=== PATIENT | male | born 1950 | race African-American/Black ===

== ENCOUNTER 2022-07-26 12:21 | Observation (INO) ==
[2022-07-26 16:49] LABS: Basophils % 0.4 % (0.0-0.8); Eosinophils # 0.3 10*3/uL (0.0-0.87); Hematocrit 38.6 VOL% (42.0-52.0); Hemoglobin 12.8 GM/DL (14.0-18.0); Immature Granulocytes % 0.3 %; Immature Granulocytes Absolute 0.02 #; Lymphocytes % 27.5 % (21.2-54.2); Mean Corpuscular HGB Conc 33.2 GM/DL (32-36); Mean Corpuscular Volume 88.9 FL (87-102); Mean Platelet Volume 10.6 FL (9.6-12.0); Monocytes # 0.5 10*3/uL (0.11-0.8); Monocytes % 6.1 % (1.7-12.7); Neutrophils % 61.7 % (38.7-73.9); Platelet Count 222 T/CUMM (130-400); Red Blood Count 4.34 MC/CUMM (3.8-5.5); Red Cell Distribution Width 13.2 % (9.3-17.3); White Blood Count 7.4 T/CUMM (4-12)
[2022-07-26 16:59] LABS: INR 0.9; PT Patient Result 10.3 SECS (10.1-12.1); Partial Thromboplastin Time 24.5 SECS (23.7-32.9)
[2022-07-26 17:08] LABS: Alanine Aminotransferase 16 U/L (16-61); Albumin 3.3 G/DL (3.4-5.0); Alkaline Phosphatase 81 U/L (45-117); Aspartate Amino Transferase 12 U/L (0-37); Bilirubin,Total < 0.39 MG/DL (0.20-1.00); Blood Urea Nitrogen 15 MG/DL (7-18); Calcium 9.2 MG/DL (8.5-10.1); Carbon Dioxide 28 MMOL/L (21-32); Chloride 110 MMOL/L (98-107); Glucose 148 MG/DL (74-106); Potassium 4.3 MMOL/L (3.5-5.1); Sodium 143 MMOL/L (136-145); Total Protein 6.3 G/DL (6.4-8.2)
[2022-07-26] MEDS ORDERED: SODIUM CHLORIDE 0.9% 1,000 ML IV STA (17:56)
[2022-07-26 18:12] LABS: Glucose,Urine (UA) 500 mg/dL (Negative); Ketones,Urine Negative (Negative); Protein,Urine >=300 mg/dL (Negative); Urine Appearance Clear (Clear); Urine Color Yellow (Yellow); Urine Specific Gravity 1.025 (1.001-1.035); Urine pH 5.5 (4.5-8.0)
[2022-07-26 18:13] LABS: Bilirubin,Urine Negative (Negative); Blood, Urine Trace mg/dL (Negative); Nitrite,Urine Negative (Negative); Urine Urobilinogen 0.2 eU/dL (<2.0)
[2022-07-26 18:16] LABS: Hyaline Casts,Urine 3 /LPF (0-3); Mucus,Urine Occasional /LPF (Occasional); RBC,Urine 6 /HPF (0-4); Squamous Epithelial Cell,Urine Occasional /HPF (0-10)
[2022-07-26 18:23] LABS: Barbiturates Screen,Urine Negative (Negative); Benzodiazepines Screen,Urine Negative (Negative); Cannabinoid Screen,Urine Negative (Negative); Opiate Screen,Urine Negative (Negative); Phencyclidine Screen,Urine Negative (Negative)
[2022-07-26] MEDS ORDERED: ACETAMINOPHEN 325 MG TABLET PO PRN (20:05)
[2022-07-26] MEDS ORDERED: ONDANSETRON 4 MG/2 ML VIAL IV PRN (20:05)
[2022-07-26] MEDS ORDERED: DOCUSATE SODIUM 100 MG CAPSULE PO PRN (20:05)
[2022-07-26] MEDS ORDERED: traZODone 50 MG TABLET PO PRN (20:05)
[2022-07-26] MEDS ORDERED: GLUCAGON 1 MG VIAL IM PRN (20:05)
[2022-07-26] MEDS ORDERED: DEXTROSE 10% 250 ML BAG IV PRN (20:05)
[2022-07-26] MEDS: ENOXAPARIN 40 MG/0.4 ML SYRINGE SUBCUT SCH (22:41)
[2022-07-26] MEDS: INSULIN REGULAR 100 UNIT/ML SUBCUT SCH (22:47)
[2022-07-27] MEDS: buPROPion SR 100 MG TABLET PO SCH ×3 (01:00→20:58)
[2022-07-27 01:26] LABS: Basophils % 0.3 % (0.0-0.8); Eosinophils # 0.4 10*3/uL (0.0-0.87); Eosinophils % 5.2 % (0.00-10.9); Hematocrit 34.3 VOL% (42.0-52.0); Hemoglobin 11.3 GM/DL (14.0-18.0); Immature Granulocytes % 0.1 %; Immature Granulocytes Absolute 0.01 #; Lymphocytes # 2.5 10*3/uL (1.4-4.0); Lymphocytes % 34.5 % (21.2-54.2); Mean Corpuscular HGB Conc 32.9 GM/DL (32-36); Mean Corpuscular Volume 89.6 FL (87-102); Mean Platelet Volume 10.7 FL (9.6-12.0); Monocytes # 0.4 10*3/uL (0.11-0.8); Monocytes % 5.9 % (1.7-12.7); Platelet Count 195 T/CUMM (130-400); Red Blood Count 3.83 MC/CUMM (3.8-5.5); Red Cell Distribution Width 13.3 % (9.3-17.3); White Blood Count 7.1 T/CUMM (4-12)
[2022-07-27 01:47] LABS: Calcium 8.5 MG/DL (8.5-10.1); Osmolality,Calculated 289.3 MOS/KG (273-304); Potassium 4.1 MMOL/L (3.5-5.1); Thyroid Stimulating Hormone 1.26 uIU/ml (0.358-3.74); VLDL Cholesterol 82.2 MG/DL
[2022-07-27] MEDS ORDERED: MAGNESIUM SULF RIDER 2 GM/50 ML PREMIX IV ONE (08:00)
[2022-07-27] MEDS: ASPIRIN EC 325 MG TABLET PO SCH (08:04)
[2022-07-27] MEDS: NICOTINE 21 MG/24 HR PATCH TRANSDERM SCH (08:04)
[2022-07-27] MEDS: FERROUS SULFATE 325 MG TABLET PO SCH ×2 (08:10→20:58)
[2022-07-27] MEDS: OMEGA 3 ACID ETHYL ESTERS 1 GM CAPSULE PO SCH ×2 (08:10→20:57)
[2022-07-27] MEDS: lisinopriL 20 MG TABLET PO SCH (08:10)
[2022-07-27] MEDS: INSULIN REGULAR 100 UNIT/ML SUBCUT SCH ×4 (08:20→21:09)
[2022-07-27] MEDS ORDERED: ASPIRIN EC 81 MG TABLET PO SCH (09:00)
[2022-07-27] MEDS ORDERED: amLODIPine 10 MG TABLET PO ONE (11:58)
[2022-07-27] MEDS: TRIAMTERENE/HCTZ 37.5-25 MG CAPSULE PO SCH (16:11)
[2022-07-27] MEDS: ENOXAPARIN 40 MG/0.4 ML SYRINGE SUBCUT SCH ×2 (20:56→21:32)
[2022-07-27] MEDS: glipiZIDE 10 MG TABLET PO SCH (20:57)
[2022-07-27] MEDS ORDERED: SIMVASTATIN 40 MG TABLET PO SCH (21:00)
[2022-07-28 06:35] LABS: Basophils % 0.3 % (0.0-0.8); Eosinophils # 0.3 10*3/uL (0.0-0.87); Eosinophils % 4.7 % (0.00-10.9); Hematocrit 35.4 VOL% (42.0-52.0); Hemoglobin 11.6 GM/DL (14.0-18.0); Immature Granulocytes % 0.5 %; Immature Granulocytes Absolute 0.03 #; Lymphocytes # 1.5 10*3/uL (1.4-4.0); Mean Corpuscular HGB Conc 32.8 GM/DL (32-36); Mean Corpuscular Volume 89.4 FL (87-102); Mean Platelet Volume 10.6 FL (9.6-12.0); Monocytes # 0.4 10*3/uL (0.11-0.8); Monocytes % 6.4 % (1.7-12.7); Neutrophils % 63.1 % (38.7-73.9); Platelet Count 206 T/CUMM (130-400); Red Blood Count 3.96 MC/CUMM (3.8-5.5); Red Cell Distribution Width 13.1 % (9.3-17.3); White Blood Count 5.8 T/CUMM (4-12)
[2022-07-28 07:10] LABS: Calcium 8.8 MG/DL (8.5-10.1); Osmolality,Calculated 284.3 MOS/KG (273-304); Potassium 3.8 MMOL/L (3.5-5.1)
[2022-07-28 08:12] VITALS: BP 168/84
[2022-07-28] MEDS: ASPIRIN EC 325 MG TABLET PO SCH (08:47)
[2022-07-28] MEDS: lisinopriL 20 MG TABLET PO SCH (08:47)
[2022-07-28] MEDS: glipiZIDE 10 MG TABLET PO SCH (08:47)
[2022-07-28] MEDS: OMEGA 3 ACID ETHYL ESTERS 1 GM CAPSULE PO SCH (08:47)
[2022-07-28] MEDS: FERROUS SULFATE 325 MG TABLET PO SCH (08:47)
[2022-07-28] MEDS: NICOTINE 21 MG/24 HR PATCH TRANSDERM SCH (08:48)
[2022-07-28] MEDS: buPROPion SR 100 MG TABLET PO SCH (08:48)
[2022-07-28] MEDS: INSULIN REGULAR 100 UNIT/ML SUBCUT SCH (08:48)
[2022-07-28] MEDS: TRIAMTERENE/HCTZ 37.5-25 MG CAPSULE PO SCH (08:48)
[2022-07-28] MEDS ORDERED: PIOGLITAZONE 15 MG TABLET PO SCH (09:00)
[2022-07-28] MEDS ORDERED: amLODIPine 10 MG TABLET PO SCH (09:00)
== END 2022-07-28 11:20 | disposition home or self-care (01) ==
LOC: N.EDINP 12:21 → N.ED 12:21 → N.EDINP 23:10 → N.2W 23:43
PROVIDERS: ADMIT Internal Medicine; ATTEND Internal Medicine